=== PATIENT | male | born 1990 | race Caucasian/White ===

== ENCOUNTER 2018-06-22 17:24 | Emergency (ER) | payer MEDICAID ==
[~2018-06-22] VITALS: Ht 182.9 cm; Wt 84.1 kg
[2018-06-22 17:45] VITALS: BP 141/75
== END 2018-06-22 19:55 | disposition home or self-care (01) ==
LOC: ER 17:25
DX: Z02.89 Encounter for other administrative examinations (principal); F15.90 Other stimulant use, unspecified, uncomplicated; F11.90 Opioid use, unspecified, uncomplicated; Z56.0 Unemployment, unspecified; Z88.0 Allergy status to penicillin
CPT/HCPCS: 99281

== ENCOUNTER 2020-06-04 17:13 | Emergency (ER) | payer MEDICAID ==
[~2020-06-04] VITALS: Ht 182.9 cm; Wt 84.1 kg
[2020-06-04] MEDS ORDERED: IBUP-1984 PO (17:46)
[2020-06-04] MEDS ORDERED: ibuprofen tablet 400 MG TABLET PO ONE (17:50)
== END 2020-06-04 18:36 | disposition home or self-care (01) ==
LOC: ER 17:14
DX: S39.012A Strain of muscle, fascia and tendon of lower back, initial encounter (principal); R51.9 Headache, unspecified; M54.89 Other dorsalgia; R10.84 Generalized abdominal pain; F15.90 Other stimulant use, unspecified, uncomplicated; F11.90 Opioid use, unspecified, uncomplicated; F19.90 Other psychoactive substance use, unspecified, uncomplicated; Z60.2 Problems related to living alone; Z56.0 Unemployment, unspecified; Z88.0 Allergy status to penicillin; Z79.899 Other long term (current) drug therapy; X58.XXXA Exposure to other specified factors, initial encounter; Y93.89 Activity, other specified; Y92.89 Other specified places as the place of occurrence of the external cause; Y99.8 Other external cause status
CPT/HCPCS: 99282

== ENCOUNTER 2022-05-27 18:25 | Emergency (ER) | payer MEDICAID ==
[~2022-05-27] VITALS: Ht 182.9 cm; Wt 81.8 kg
[2022-05-27] MEDS ORDERED: DOXY100C43 PO (19:27)
[2022-05-27 19:54] VITALS: BP 127/81
--- NOTE | 2022-05-27 19:54 | NUR ---
WOUNDS CLEANED, 4X4 GAUZE AND CURLEX PLACED AROUND RIGHT LOWER ARM.
== END 2022-05-27 19:55 ==
LOC: ER 18:26
DX: S51.831A Puncture wound without foreign body of right forearm, initial encounter (principal); S50.811A Abrasion of right forearm, initial encounter; F17.210 Nicotine dependence, cigarettes, uncomplicated; F15.90 Other stimulant use, unspecified, uncomplicated; F11.90 Opioid use, unspecified, uncomplicated; F19.90 Other psychoactive substance use, unspecified, uncomplicated; Z60.2 Problems related to living alone; Z56.0 Unemployment, unspecified; Z88.0 Allergy status to penicillin; Z79.2 Long term (current) use of antibiotics; W54.0XXA Bitten by dog, initial encounter; Y93.89 Activity, other specified; Y92.89 Other specified places as the place of occurrence of the external cause; Y99.8 Other external cause status
CPT/HCPCS: 99283; J7030; A6446; A6449

== ENCOUNTER 2024-10-17 11:24 | Emergency (ER) | payer MEDICAID ==
[~2024-10-17] VITALS: Ht 182.9 cm; Wt 81.8 kg
[2024-10-17 11:28] VITALS: BP 120/68; PULSE 73; RESP 18; O2SAT 97
--- NOTE | 2024-10-17 12:38 | Physician Documentation ---
History of Present Illness ~ Chief Complaint: Medical Clearance Stated Complaint: MED CLEARANCE Time Seen by MD: 11:59 Primary Medical Doctor: NONE HPI This is a 34-year-old male with history of methamphetamine and fentanyl abuse who presents requesting medical clearance to enter [facility], patient reports that he is currently undergoing MAT therapy with methadone. Patient reports no history of alcohol abuse. Patient reports no other acute symptoms or concerns and reports feels otherwise well. Tetanus within 5 years?: No Medication Reconciliation Allergies: Coded Allergies: Penicillins (Verified Allergy, Unknown, 05/27/22) Past Medical History Past Medical History: No Pertinent History Past Surgical History: noncontributory Smoking Status: Current every day smoker Alcohol Use: None Drug Use: methamphetamine, heroin, other Lives with: Alone Occupation: unemployed Review of Systems ROS As stated above in the HPI, otherwise all systems are reviewed and negative. Physical Exam Vital Signs: Temperature: 97.9, Source: Temporal, Heart Rate: 73, Respiratory Rate: 18, BP: 120/68, Pulse Oximetry: 97, Weight: 81.820 Oxygen Flow Rate: 0 Physical Exam VITALS: Reviewed and as above. GENERAL: Alert and oriented x4, nontoxic appearing, no apparent distress. HEENT: Normocephalic, atraumatic, PERRL, EOMI, dry mucosa, no erythema, uvula midline RESPIRATORY: Lungs clear, normal breath sounds, no respiratory distress, speaking full clear sentences CV: Regular rate, rhythm, no edema, no murmur, GI: Soft, non-tender, bowels sounds present, no rebound, guarding, or rigidity BACK: No CVA tenderness, no midline tenderness MUSCULOSKELETAL No deformities SKIN: Warm and dry, no rash PSYCH: Normal mood and affect, no agitation Progress Results/Orders Results/Orders Vital Signs 10/17/24 10/17/24 11:28 12:46 Temp 97.9 97.9 Pulse 73 Resp 18 B/P (MAP) 120/68 Pulse Ox 97 O2 Flow Rate 0 Medical Decision Making Findings This 34-year-old male with history of opioid and methamphetamine abuse presented requesting medical clearance for entry to a detox and rehab program, patient is otherwise well-appearing and reporting no acute symptoms or concerns. Patient reported no history of alcohol abuse therefore believe he is of low risk for alcohol withdrawal symptoms. Patient reported he is undergoing methadone treatment for opioid use disorder therefore I believe he is at low risk for opioid withdrawal, additionally patient is followed by methadone clinic for substance use disorder treatment. Patient had a benign physical exam and is medically cleared to enter his rehab program. Patient provided follow up instructions and return to care precautions. Differential Dx:Considerations: Include: Intoxication-Alcohol, Intoxication- Other drug, Substance abuse disorder, Acute delirium, Alcohol withdrawl syndrom Departure Time of Disposition: 12:38 Disposition: HOME / SELF CARE / HOMELESS Impression: Primary Impression: General medical exam Condition: Improved Discharge Instructions: Medical Screening Exam Additional Instructions: You are medically cleared to enter [facility]. Please continue with your methadone therapy as scheduled. Please follow up with your primary care provider or [facility] in the next few days. Please return to the emergency department for any new or worsening concerning symptoms. Referrals: NO PRIMARY CARE PROVIDER (PCP) Education Educated: Patient Educated regarding: diagnosis, treatment, prognosis, need for follow up Signature Scribe Signature: No scribe Attestation: The note accurately reflects work and decisions made by me.MARIANA Ramírez 10/17/24 21:18 CARLITA MINOR Oct 17, 2024 12:38
[2024-10-17 12:46] VITALS: TEMP 97.9
== END 2024-10-17 12:48 | disposition home or self-care (01) ==
LOC: ER 11:25
DX: Z00.8 Encounter for other general examination (principal); F15.90 Other stimulant use, unspecified, uncomplicated; F11.90 Opioid use, unspecified, uncomplicated; F17.200 Nicotine dependence, unspecified, uncomplicated; Z88.0 Allergy status to penicillin
CPT/HCPCS: 99281; 99282